=== PATIENT | female | born 1970 | race Caucasian/White ===

== ENCOUNTER → 2016-11-02 | Outpatient (CLI) | payer OTHER ==
--- NOTE | 2016-11-03 11:47 | MM ---
Reason for exam: screening (asymptomatic). Last mammogram was performed 1 year ago. Physical Findings: A clinical breast exam by your physician is recommended on an annual basis and results should be correlated with mammographic findings. MG Screening Mammo w CAD Bilateral CC and MLO view(s) were taken. Prior study comparison: November 01, 2015, bilateral MG screening mammo w CAD. October 29, 2014, bilateral MG screening mammo w CAD. The breast tissue is heterogeneously dense. This may lower the sensitivity of mammography. Benign calcifications. Focal asymmetry in the upper left breast 9cm from nipple. ASSESSMENT: Incomplete: need additional imaging evaluation, BI-RAD 0 RECOMMENDATION: Special view mammogram of the left breast. If lesion persists on supplemental views, image directed ultrasound is recommended. [facility] will attempt to contact patient to return for supplemental views and ultrasound if indicated.
== END | disposition home or self-care (01) ==
LOC: RADMAMWWP 11:21
PROVIDERS: ATTEND Internal Medicine
DX: Z12.31 Encounter for screening mammogram for malignant neoplasm of breast (principal)

== ENCOUNTER → 2016-11-13 | Outpatient (CLI) | payer OTHER ==
--- NOTE | 2016-11-13 14:52 | MM ---
Reason for exam: additional evaluation requested from abnormal screening. Last mammogram was performed less than 1 month ago. Physical Findings: Nurse did not find any significant physical abnormalities on exam. MG Work Up Mamm w CAD LT ML, spot compression MLO, and spot compression CC view(s) were taken of the left breast. Prior study comparison: November 02, 2016, bilateral MG screening mammo w CAD. November 01, 2015, bilateral MG screening mammo w CAD. October 29, 2014, bilateral MG screening mammo w CAD. The breast tissue is heterogeneously dense. This may lower the sensitivity of mammography. The questioned central posterior asymmetric density does not persist on spot views suggesting summation density. Precautionary 6 month follow up recommended. These results were verbally communicated with the patient and result sheet given to the patient on 11/13/16. ASSESSMENT: Probably benign, BI-RAD 3 RECOMMENDATION: Follow-up diagnostic mammogram of the left breast in 6 months.
== END | disposition home or self-care (01) ==
LOC: RADMAMWWP 14:04
PROVIDERS: ATTEND Internal Medicine
DX: R92.8 Other abnormal and inconclusive findings on diagnostic imaging of breast (principal)

== ENCOUNTER → 2017-06-26 | Outpatient (CLI) | payer OTHER ==
--- NOTE | 2017-06-26 14:59 | MM ---
Reason for exam: follow-up at short interval from prior study. Last mammogram was performed 7 months ago. Physical Findings: Nurse did not find any significant physical abnormalities on exam. MG Diagnostic Mammo LT w CAD CC and MLO view(s) were taken of the left breast. Prior study comparison: November 13, 2016, left breast MG work up mamm w CAD LT. November 02, 2016, bilateral MG screening mammo w CAD. There are scattered fibroglandular densities. The previously questioned posterior central asymmetric density on the MLO view is no longer present. Subtle nodular density laterally at a middle depth show no correlate on lateral or MLO view. This is stable for 6 months. Additional 6 month follow up recommended. These results were verbally communicated with the patient and result sheet given to the patient on 06/26/17. ASSESSMENT: Probably benign, BI-RAD 3 RECOMMENDATION: Follow-up diagnostic mammogram of both breasts in 4 months. Back on schedule for October 2017.
== END | disposition home or self-care (01) ==
LOC: RADMAMWWP 14:14
PROVIDERS: ATTEND Internal Medicine
DX: N64.59 Other signs and symptoms in breast (principal)
CPT/HCPCS: 77065

== ENCOUNTER → 2017-10-17 | Outpatient (CLI) | payer OTHER ==
--- NOTE | 2017-10-18 07:08 | US ---
EXAMINATION TYPE: US thyroid st tissue head/neck DATE OF EXAM: 10/17/2017 COMPARISON: NONE CLINICAL HISTORY: R22.1 SWOLLEN NECK. Patient states she has gained a lot of weight and she noticed a swollen appearing area in the middle of her neck. No pain No abnormality is visualized at the area of the patient's swelling. Incidental finding of a right thy roid nodule measuring 0.6 x 0.7 x 0.6 cm IMPRESSION: As above, no worrisome mass or fluid collection. Incidental 7 mm solid nodule right thyr oid lobe.
== END | disposition home or self-care (01) ==
LOC: RADUSWWP 15:20
PROVIDERS: ATTEND Internal Medicine
DX: R22.1 Localized swelling, mass and lump, neck (principal)
CPT/HCPCS: 76536

== ENCOUNTER → 2017-11-05 | Outpatient (CLI) | payer OTHER ==
--- NOTE | 2017-11-05 13:34 | MM ---
Reason for exam: follow-up at short interval from prior study. Last mammogram was performed 4 months ago. Physical Findings: Nurse did not find any significant physical abnormalities on exam. MG Diagnostic Mammo w CAD GOOD Bilateral CC and MLO view(s) were taken. Prior study comparison: June 26, 2017, left breast MG diagnostic mammo LT w CAD. November 13, 2016, left breast MG work up mamm w CAD LT. There are scattered fibroglandular densities. Previous densities on the left no longer present. No significant new findings when compared with previous films. These results were verbally communicated with the patient and result sheet given to the patient on 11/05/17. ASSESSMENT: Negative, BI-RAD 1 RECOMMENDATION: Routine screening mammogram of both breasts in 1 year.
== END | disposition home or self-care (01) ==
LOC: RADMAMWWP 12:51
PROVIDERS: ATTEND Internal Medicine
DX: N64.59 Other signs and symptoms in breast (principal)
CPT/HCPCS: 77066

== ENCOUNTER → 2018-04-05 | Outpatient (CLI) | payer OTHER ==
--- NOTE | 2018-04-05 15:33 | XR ---
EXAMINATION TYPE: XR shoulder complete RT DATE OF EXAM: 04/05/2018 CLINICAL HISTORY: pain TECHNIQUE: Three views of the right shoulder are obtained. COMPARISON: None FINDINGS: There is no acute fracture/dislocation evident. The acromioclavicular and glenohumeral beatris int spaces appear within normal limits. The visualized ribs are intact and unremarkable. IMPRESSION: 1. There is no acute fracture or dislocation. ICD 10 NO FRACTURE, INITIAL EVALUATION
== END | disposition home or self-care (01) ==
LOC: RADXRYALE 14:26
PROVIDERS: ATTEND Internal Medicine
DX: M25.511 Pain in right shoulder (principal)

== ENCOUNTER → 2018-07-03 | Outpatient (CLI) | payer OTHER ==
--- NOTE | 2018-07-03 12:35 | XR ---
Lumbosacral spine HISTORY: Sciatica, pain 5 views of the lumbosacral spine There is no evident spondylolysis or spondylolisthesis. Multilevel spondylosis is present. Lumbar guanako tebral bodies show preserved height and bone mineralization. Loss of disc height present L5-S1. Suspe ct only rudimentary rib at T12 on the left. Sclerosis present in the posterior elements of the lower lumbar spine compatible with facet arthropathy. IMPRESSION: Degenerative disc disease and facet arthropathy. Correlate with plain film prior to any i ntervention.
== END ==
LOC: RADXRYALE 09:10
PROVIDERS: ATTEND Internal Medicine
DX: M51.36 Other intervertebral disc degeneration, lumbar region (principal); M46.96 Unspecified inflammatory spondylopathy, lumbar region
CPT/HCPCS: 72110

== ENCOUNTER → 2018-08-05 | Outpatient (CLI) | payer OTHER ==
--- NOTE | 2018-08-06 07:34 | US ---
EXAMINATION TYPE: US pelvic complete DATE OF EXAM: 08/05/2018 COMPARISON: NONE CLINICAL HISTORY: N92.1 Menorrhagia w/irregular cycle. irregular heavy cycles for a while now, no cyc le in Jun TECHNIQUE: TA. Transabdominal sonographic images of the pelvis were acquired. *Patient states her physician did not explain the TV portion and once I informed her of exam she refused at this time. Date of LMP: 05/16/2018 EXAM MEASUREMENTS: Uterus: 9.5 x 4.7 x 3.8 cm Endometrial Stripe: 0.9 cm Right Ovary: 1.6 x 1.7 x 1.2 cm Left Ovary: 2.2 x 1.8 x 1.8 cm 1. Uterus: Anteverted wnl 2. Endometrium: wnl 3. Right Ovary: small follicle seen 4. Left Ovary: dominate follicle seen 5. Bilateral Adnexa: wnl 6. Posterior cul-de-sac: wnl IMPRESSION: Small cyst or dominant follicle within the left ovary measuring 1.5 cm. Endometrial strip e measures 9 mm correlate with the phase of the patient's menstrual cycle.
== END | disposition home or self-care (01) ==
LOC: RADUSWWP 16:04
PROVIDERS: ATTEND Internal Medicine
DX: N92.1 Excessive and frequent menstruation with irregular cycle (principal)
CPT/HCPCS: 76856

== ENCOUNTER → 2019-01-17 | Outpatient (CLI) | payer OTHER ==
--- NOTE | 2019-01-20 13:29 | MM ---
Reason for exam: screening (asymptomatic). Last mammogram was performed 1 year and 2 months ago. Physical Findings: A clinical breast exam by your physician is recommended on an annual basis and results should be correlated with mammographic findings. MG Screening Mammo w CAD Bilateral CC and MLO view(s) were taken. Prior study comparison: November 05, 2017, bilateral MG diagnostic mammo w CAD GOOD. June 26, 2017, left breast MG diagnostic mammo LT w CAD. There are scattered fibroglandular densities. No significant changes when compared with prior studies. ASSESSMENT: Negative, BI-RAD 1 RECOMMENDATION: Routine screening mammogram of both breasts in 1 year.
== END | disposition home or self-care (01) ==
LOC: RADMAMWWP 16:31
PROVIDERS: ATTEND Internal Medicine
DX: Z12.31 Encounter for screening mammogram for malignant neoplasm of breast (principal)
CPT/HCPCS: 77067

== ENCOUNTER → 2020-02-17 | Outpatient (CLI) | payer OTHER | END | disposition home or self-care (01) | LOC: LABWHC1 13:32 | PROVIDERS: ATTEND Internal Medicine | DX: R05 Cough (principal); Z20.828 Contact with and (suspected) exposure to other viral communicable diseases; R09.81 Nasal congestion | CPT/HCPCS: U0003; C9803 ==

== ENCOUNTER 2021-03-17 14:06 | Inpatient (IN) | payer OTHER ==
[2021-03-17] MEDS ORDERED: ACETAMINOPHEN TAB 500 MG TAB PO STA (17:16)
[2021-03-17] MEDS ORDERED: ONDANSETRON ODT 4 MG TAB PO STA (17:16)
[2021-03-17] MEDS ORDERED: ONDANSETRON 4 MG ODT STARTER PACK 2 TAB BTL PO STA (17:19)
--- NOTE | 2021-03-17 17:20 | ED ---
General Adult HPI - General Chief complaint: Recheck/Abnormal Lab/Rx Stated complaint: COVID + wants infusion Source: patient Mode of arrival: ambulatory Limitations: no limitations - History of Present Illness Initial comments: 50-year-old female with no reported past medical history presents to the emergency department requesting antibody treatment. States that she began hav ing symptoms on March 09 and was tested that day at a [facility]. She is found to be positive. She said fevers, fatigue, shortness of breath, nausea and diarrhea. Patient is not Covid vaccinated. She denies any previous history of cardiac or pulmonary issues. No other alleviating, precipitating or modifying factors - Related Data Home Medications Medication Instructions Recorded Confirmed Cholecalciferol [Vitamin D3 (25 50 mcg PO DAILY 03/17/21 03/17/21 Mcg = 1000 Iu)] Levothyroxine Sodium [Synthroid] 88 mcg PO DAILY 03/17/21 03/17/21 Loratadine 10 mg PO DAILY 03/17/21 03/17/21 Simvastatin [Zocor] 40 mg PO DAILY 03/17/21 03/17/21 Venlafaxine HCl [Effexor XR] 75 mg PO DAILY 03/17/21 03/17/21 Previous Rx's Medication Instructions Recorded Albuterol Inhaler [Ventolin Hfa 2 puff INHALATION RT-QID PRN #1 gm 03/21/21 Inhaler] Ascorbic Acid [Vitamin C] 500 mg PO DAILY #30 tab 03/21/21 Zinc Sulfate [Orazinc] 220 mg PO DAILY #10 cap 03/21/21 dexAMETHasone ORAL [Hexadrol] 6 mg PO DAILY #7 tablet 03/21/21 Allergies Allergy/AdvReac Type Severity Reaction Status Date / Time No Known Allergies Allergy Verified 03/17/21 21:19 Review of Systems ROS Statement: Those systems with pertinent positive or pertinent negative responses have been documented in the HPI. ROS Other: All systems not noted in ROS Statement are negative. Past Medical History Past Medical History: No Reported History History of Any Multi-Drug Resistant Organisms: None Reported Past Surgical History: No Surgical Hx Reported Past Psychological History: No Psychological Hx Reported Smoking Status: Never smoker Past Alcohol Use History: None Reported Past Drug Use History: None Reported General Exam Limitations: no limitations General appearance: alert, in no apparent distress Head exam: Present: atraumatic, normocephalic, normal inspection Eye exam: Present: normal appearance, PERRL, EOMI. Absent: scleral icterus, conjunctival injection, periorbital swelling ENT exam: Present: normal exam, mucous membranes moist Neck exam: Present: normal inspection. Absent: tenderness, meningismus, lymphadenopathy Respiratory exam: Present: decreased breath sounds, other (some conversational dyspnia). Absent: respiratory distress, wheezes, rales, rhonchi, stridor Cardiovascular Exam: Present: normal rhythm, tachycardia, normal heart sounds. Absent: systolic murmur, diastolic murmur, rubs, gallop, clicks GI/Abdominal exam: Present: soft, normal bowel sounds. Absent: distended, tenderness, guarding, rebound, rigid Extremities exam: Present: normal inspection, full ROM, normal capillary refill. Absent: tenderness, pedal edema, joint swelling, calf tenderness Back exam: Present: normal inspection Neurological exam: Present: alert, oriented X3, CN II-XII intact Psychiatric exam: Present: normal affect, normal mood Skin exam: Present: warm, dry, intact, normal color. Absent: rash Course Vital Signs 03/17/21 03/17/21 03/17/21 15:47 18:10 18:35 Temperature 100.4 F H Pulse Rate 105 H 89 89 Pulse Rate [ Pulse Oximetery ] Respiratory 20 18 20 Rate Blood Pressure 139/67 130/57 136/53 Blood Pressure [Left Arm] O2 Sat by Pulse 93 L 91 L 89 L Oximetry 03/17/21 03/17/21 03/18/21 20:12 22:00 02:14 Temperature 99.4 F 98.7 F 98.8 F Pulse Rate 90 93 93 Pulse Rate [ Pulse Oximetery ] Respiratory 20 16 18 Rate Blood Pressure 126/64 115/53 116/71 Blood Pressure [Left Arm] O2 Sat by Pulse 92 L 96 93 L Oximetry 03/18/21 03/18/21 03/18/21 04:25 04:26 08:52 Temperature Pulse Rate 98 90 Pulse Rate [ Pulse Oximetery ] Respiratory 20 20 Rate Blood Pressure Blood Pressure [Left Arm] O2 Sat by Pulse 84 L 96 91 L Oximetry 03/18/21 03/18/21 03/18/21 09:29 12:56 15:21 Temperature 98.2 F Pulse Rate 82 Pulse Rate [ 77 Pulse Oximetery ] Respiratory 18 16 Rate Blood Pressure 107/65 Blood Pressure 118/68 [Left Arm] O2 Sat by Pulse 93 L 94 L 92 L Oximetry 03/18/21 03/18/21 17:59 21:38 Temperature Pulse Rate 91 Pulse Rate [ Pulse Oximetery ] Respiratory 16 Rate Blood Pressure Blood Pressure [Left Arm] O2 Sat by Pulse 92 L 96 Oximetry - Reevaluation(s) Reevaluation #1: 03/17/21 20:17 Patient reevaluated. Wanted antibody infusion for which she received. Oxygenation does fall to 85%. I did recommend admission at this time EKG Findings - EKG Comments: EKG Findings:: EKG demonstrates normal sinus rhythm with a ventricular rate of 85. AR interval 142. QRS 88. QTC of 437. No acute ST segment elevations or depressions concerning for ischemic changes or infarction Medical Decision Making - Medical Decision Making Upon arrival patient was placed into the conference room. IV is established. Antibody infusion is ordered. She is given a dose of Zofran and Tylenol. Patient does receive antibody infusion and vitals are obtained throughout her treatment. Patient does develop worsening oxygenation. Patient saturating 88% on room air because of this she is moved to room 9. I evaluated the patient myself. She is able to get up and ambulate and drops to 85%. I informed the patient that I do believe she we should be admitted to the hospital for her hypoxia. Patient agreed. Laboratory studies were conducted and the patient went for a chest x-ray which demonstrates multifocal bilateral ill-defined airspace opacities. Patient will be admitted to [facility]. She remained in stable condition on 2 L of oxygen awaiting a bed on the floor - Lab Data Result diagrams: 03/17/21 21:22 03/17/21 21:22 Disposition Clinical Impression: COVID-19 Disposition: ADMITTED IP TO THIS HOSP Condition: Stable Is patient prescribed a controlled substance at d/c from ED?: No Decision to Admit Reason: Admit from EC Decision Date: 03/17/21 Decision Time: 20:17
[2021-03-17] MEDS ORDERED: CASIRIVIMAB/IMDEVIMAB (EUA) 1,200 MG in SODIUM CHLORIDE 0.9% 100 ML IVPB ONE (17:30)
[2021-03-17] MEDS ORDERED: SODIUM CHLORIDE 0.9% 50 ML IVPB ONE (17:30)
[2021-03-17] MEDS ORDERED: ALBUTEROL HFA INHALER INHALATION STA (18:15)
[2021-03-17] MEDS ORDERED: ONDANSETRON 4 MG/2 ML VIAL IVP PRN (20:18)
[2021-03-17] MEDS ORDERED: NALOXONE 0.4 MG/ML 1 ML VIAL IV PRN (20:18)
[2021-03-17] MEDS ORDERED: IBUPROFEN 400 MG TAB PO PRN (20:18)
--- NOTE | 2021-03-17 21:00 | XR ---
EXAMINATION: XR chest 1V portable DATE AND TIME: 03/17/2021 8:39 PM CLINICAL INDICATION: Dyspnea; Suspected COVID-19 pneumonia TECHNIQUE: Departmental protocol COMPARISON: 11/04/2013 FINDINGS: The lungs demonstrate multifocal patchy ill-defined opacities, left greater than right and most situa antonio at the periphery. These radiographic features are consistent with a clinical diagnosis of atypica l pneumonia. The pleural spaces are negative. The cardiac silhouette is not enlarged. The remainder of the mediastinal silhouette is unremarkable. The skeletal structures and soft tissues are negative for acute findings. IMPRESSION: Multifocal bilateral ill-defined added pulmonary opacities, predominating at the periphery of the par enchyma.
[2021-03-17 21:27] LABS: Basophils % (A) 0 %; Eosinophils % (A) 0 %; HCT 36.4 % (34.0-46.0); HGB 12.4 gm/dL (11.4-16.0); Lymphocytes # (A) 0.7 k/uL (1.0-4.8); Lymphocytes % (A) 16 %; MCH 27.9 pg (25.0-35.0); MCHC 34.1 g/dL (31.0-37.0); MCV 81.7 fL (80.0-100.0); Mean Platelet Volume 7.8; Monocytes # (A) 0.1 k/uL (0-1.0); Monocytes % (A) 3 %; Neutrophils # (A) 3.4 k/uL (1.3-7.7); Neutrophils % (A) 79 %; Platelet Count 111 k/uL (150-450); RBC 4.45 m/uL (3.80-5.40); RDW 13.6 % (11.5-15.5); WBC 4.3 k/uL (3.8-10.6)
[2021-03-17 21:36] LABS: ALT 33 U/L (4-34); AST 50 U/L (14-36); African American GFR (CKD) >90 (>60 ml/min/1.73 sqM); Albumin 3.7 g/dL (3.5-5.0); Alkaline Phosphatase 64 U/L (38-126); Anion Gap 9 mmol/L; Blood Urea Nitrogen 15 mg/dL (7-17); Calcium 8.6 mg/dL (8.4-10.2); Carbon Dioxide 24 mmol/L (22-30); Chloride 102 mmol/L (98-107); Glucose 123 mg/dL (74-99); Magnesium 2.1 mg/dL (1.6-2.3); Non-African American GFR(CKD) 79 (>60 ml/min/1.73 sqM); Sodium 135 mmol/L (137-145); Total Bilirubin 0.3 mg/dL (0.2-1.3); Total Protein 6.6 g/dL (6.3-8.2)
[2021-03-17 21:45] LABS: Partial Thromboplastin Time 26.5 sec (22.0-30.0); Prothrombin Time 10.4 sec (9.0-12.0)
[2021-03-17] MEDS: ACETAMINOPHEN TAB 325 MG TAB PO PRN (22:24)
[2021-03-18] MEDS: ACETAMINOPHEN TAB 325 MG TAB PO PRN ×2 (04:21→17:50)
[2021-03-18] MEDS: SODIUM CHLORIDE 0.9% 1,000 ML IV SCH ×2 (04:22→09:22)
[2021-03-18] MEDS: DEXAMETHASONE SOD PHOSPHATE 10 MG/ML 1 ML VIAL IVP SCH (09:21)
[2021-03-18] MEDS: ATORVASTATIN 20 MG TAB PO SCH (09:21)
[2021-03-18] MEDS: LEVOTHYROXINE 88 MCG TAB PO SCH (09:21)
[2021-03-18] MEDS: CHOLECALCIFEROL 25 MCG (1000 IU) TABLET PO SCH (09:21)
[2021-03-18] MEDS: LORATADINE 10 MG TAB PO SCH (09:22)
[2021-03-18] MEDS: VENLAFAXINE HCL ER 75 MG CAP PO SCH (09:22)
--- NOTE | 2021-03-18 10:50 | P.CNPUL ---
History of Present Illness Consult date: 03/18/21 Reason for consult: pneumonia History of present illness: A pleasant 50-year-old female patient is currently hospitalized for shortness of breath and fever related to covid 19 infection. The patient became symptomatic on 03/09/2021. At that time she was exposed to her daughter was also infected. Immediately she checked herself and she was positive. She contacted her primary care physician. No treatment was offered. Her condition got worse and she continued to have fevers and she is calm and in with fever and weakness and she was found to be hypoxic and currently is on 2 L of oxygen by nasal cannula. He did receive multiple antibodies yesterday. Subsequently, she was found to be hypoxic and her breathing got worse and for that reason she was admitted to the hospital. Her breathing is nonlabored at this point in time. She is on 2 L of oxygen by nasal cannula. Chest x-rays clearly showing bilateral pneumonia/infiltration. The patient's crackles bilaterally. White cell count is at 4.3, platelet count is 111, normal coagulation profile, d-dimer is low at 0.54, electrolytes are all normal, inflammatory markers are still pending for now. Renal function is normal. No signs of intravascular volume depletion or dehydration. She is otherwise healthy. She has history of hypothyroidism. Review of Systems Constitutional: Reports fatigue, Reports fever, Reports weakness Eyes: denies as per HPI, denies blurred vision, denies bulging eye, denies decreased vision, denies diplopia, denies discharge, denies dry eye, denies irritation, denies itching, denies pain, denies photophobia, denies loss of peripheral vision, denies loss of vision, denies tunnel vision/blind spots Ears: deny: decreased hearing, ear discharge, earache, tinnitus Ears, nose, mouth and throat: Reports as per HPI Breasts: absent: as per HPI, change in shape, gynecomastia, masses, nipple discharge, pain, skin changes, swelling Cardiovascular: Reports as per HPI Respiratory: Reports as per HPI, Reports cough Gastrointestinal: Reports as per HPI Genitourinary: Reports as per HPI Menstruation: Reports as per HPI Musculoskeletal: Reports as per HPI Musculoskeletal: absent: ankle pain, ankle stiffness, ankle swelling, as per HPI, elbow pain, elbow stiffness, elbow swelling, foot pain, foot stiffness, foot swelling, hand pain, hand stiffness, hand swelling, hip pain, hip stiffness, hip swelling, knee pain, knee stiffness, knee swelling, shoulder pain, shoulder stiffness, shoulder swelling, wrist pain, wrist stiffness, wrist swelling Integumentary: Reports as per HPI Neurological: Reports as per HPI Psychiatric: Reports as per HPI Endocrine: Reports as per HPI Hematologic/Lymphatic: Reports as per HPI Allergic/Immunologic: Reports as per HPI Past Medical History Past Medical History: No Reported History, Thyroid Disorder History of Any Multi-Drug Resistant Organisms: None Reported Past Surgical History: No Surgical Hx Reported Past Psychological History: No Psychological Hx Reported Smoking Status: Never smoker Past Alcohol Use History: None Reported Past Drug Use History: None Reported Medications and Allergies Home Medications Medication Instructions Recorded Confirmed Type Cholecalciferol [Vitamin D3 (25 50 mcg PO DAILY 03/17/21 03/17/21 History Mcg = 1000 Iu)] Levothyroxine Sodium [Synthroid] 88 mcg PO DAILY 03/17/21 03/17/21 History Loratadine 10 mg PO DAILY 03/17/21 03/17/21 History Simvastatin [Zocor] 40 mg PO DAILY 03/17/21 03/17/21 History Venlafaxine HCl [Effexor XR] 75 mg PO DAILY 03/17/21 03/17/21 History Allergies Allergy/AdvReac Type Severity Reaction Status Date / Time No Known Allergies Allergy Verified 03/17/21 21:19 Physical Exam Vitals: Vital Signs Temp Pulse Resp BP Pulse Ox 03/18/21 09:29 82 18 107/65 93 L 03/18/21 08:52 91 L 03/18/21 04:26 90 20 96 03/18/21 04:25 98 20 84 L 03/18/21 02:14 98.8 F 93 18 116/71 93 L 03/17/21 22:00 98.7 F 93 16 115/53 96 03/17/21 20:12 99.4 F 90 20 126/64 92 L 03/17/21 18:35 89 20 136/53 89 L 03/17/21 18:10 89 18 130/57 91 L 03/17/21 15:47 100.4 F H 105 H 20 139/67 93 L Intake and Output 03/17/21 03/18/21 03/18/21 22:59 06:59 14:59 Other: Weight 99.79 kg Gen. appearance the patient is calm and her breathing is nonlabored currently on 2 L Head exam was generally normal. There was no scleral icterus or corneal arcus. Mucous membranes were moist. Neck was supple and without jugular venous distension, thyromegaly, or carotid bruits. Carotids were easily palpable bilaterally. There was no adenopathy. Lungs are diminished in the patient's crackles in the lung bases bilaterally Cardiac exam revealed the PMI to be normally situated and sized. The rhythm was regular and no extrasystoles were noted during several minutes of auscultation. The first and second heart sounds were normal and physiologic splitting of the second heart sound was noted. There were no murmurs, rubs, clicks, or gallops. Abdominal exam revealed normal bowel sounds. The abdomen was soft, non-tender, and without masses, organomegaly, or appreciable enlargement of the abdominal aorta. Examination of the extremities revealed easily palpable radial, femoral and pedal pulses. There was no cyanosis, clubbing or edema. Results - Laboratory Findings CBC and BMP: 03/17/21 21:22 03/17/21 21:22 PT/INR, D-dimer PT 10.4 sec (9.0-12.0) 03/17/21 21:22 INR 1.0 (<1.2) 03/17/21 21:22 D-Dimer 0.54 mg/L FEU (<0.60) 03/17/21 21:22 Abnormal lab findings: Abnormal Labs 03/17/21 03/17/21 21:22 21:22 Plt Count 111 L Lymphocytes # 0.7 L Sodium 135 L Glucose 123 H AST 50 H - Diagnostic Findings Chest x-ray: image reviewed Assessment and Plan Plan: 1 Acute COVID 19 pneumonia, treated initially with monoclonal antibodies and subsequently the patient was found to be hypoxic with bilateral pulmonary infiltrates on the chest x-ray and the patient was hospitalized currently on 2 L about 2 by nasal cannula. D-dimer is low. The rest of the inflammatory markers are still pending 2 acute hypoxemic respiratory failure secondary to above 3 fever secondary to above 4 thrombocytopenia secondary to above 5 hypothyroidism Plan We'll admit the patient briefly to the hospital and monitor the oxygenation. Currently she is on 2 L. Check inflammatory markers including LDH, CRP and Proteus stone in level We'll put the patient on Decadron 6 g IV every 24 hours along with Lovenox 40 subcu daily Multivitamins per protocol Will monitor in the hospital for another 24-48 hours. Depending on her progress, she may be able to go home with home O2 especially if she remains hypoxic. We'll make further decisions over the next 24-48 hours. We'll continue to follow. Her condition is stable for now. 5
[2021-03-18] MEDS: ENOXAPARIN 40 MG/0.4 ML SYRINGE SQ SCH (11:16)
[2021-03-18] MEDS: ASCORBIC ACID 500 MG TAB PO SCH ×2 (11:17→21:41)
[2021-03-18] MEDS: ZINC SULFATE 220 MG CAP PO SCH (11:17)
[2021-03-18 12:29] LABS: C Reactive Protein 7.4 mg/dL (<1.0)
[2021-03-19] MEDS: SODIUM CHLORIDE 0.9% 1,000 ML IV SCH ×2 (03:09→13:40)
[2021-03-19] MEDS: LEVOTHYROXINE 88 MCG TAB PO SCH (06:05)
[2021-03-19] MEDS: ACETAMINOPHEN TAB 325 MG TAB PO PRN ×2 (07:42→20:27)
[2021-03-19] MEDS: VENLAFAXINE HCL ER 75 MG CAP PO SCH (07:42)
[2021-03-19] MEDS: CHOLECALCIFEROL 25 MCG (1000 IU) TABLET PO SCH (07:42)
[2021-03-19] MEDS: ATORVASTATIN 20 MG TAB PO SCH (07:42)
[2021-03-19] MEDS: LORATADINE 10 MG TAB PO SCH (07:43)
[2021-03-19] MEDS: ENOXAPARIN 40 MG/0.4 ML SYRINGE SQ SCH (07:43)
[2021-03-19] MEDS: ZINC SULFATE 220 MG CAP PO SCH (07:43)
[2021-03-19] MEDS: DEXAMETHASONE SOD PHOSPHATE 10 MG/ML 1 ML VIAL IVP SCH (07:43)
[2021-03-19] MEDS: ASCORBIC ACID 500 MG TAB PO SCH ×2 (07:43→20:28)
--- NOTE | 2021-03-19 09:26 | XR ---
EXAMINATION TYPE: XR chest 1V portable DATE OF EXAM: 03/19/2021 COMPARISON: 03/17/2021 INDICATION: Covid TECHNIQUE: Single frontal view of the chest is obtained. FINDINGS: The heart size is normal. The pulmonary vasculature is normal. Bilateral lung infiltrates are present in the periphery. Findings are nonspecific but can be compatib le with atypical pneumonia. Findings appear similar to comparison. IMPRESSION: 1. Bilateral peripheral lung infiltrates can be compatible with atypical pneumonia.
--- NOTE | 2021-03-19 12:07 | P.PN ---
Subjective Progress Note Date: 03/19/21 A pleasant 50-year-old female patient is currently hospitalized for shortness of breath and fever related to covid 19 infection. The patient became symptomatic on 03/09/2021. At that time she was exposed to her daughter was also infected. Immediately she checked herself and she was positive. She contacted her primary care physician. No treatment was offered. Her condition got worse and she continued to have fevers and she is calm and in with fever and weakness and she was found to be hypoxic and currently is on 2 L of oxygen by nasal cannula. He did receive multiple antibodies yesterday. Subsequently, she was found to be hypoxic and her breathing got worse and for that reason she was admitted to the hospital. Her breathing is nonlabored at this point in time. She is on 2 L of oxygen by nasal cannula. Chest x-rays clearly showing bilateral pneumonia/infiltration. The patient's crackles bilaterally. White cell count is at 4.3, platelet count is 111, normal coagulation profile, d-dimer is low at 0.54, electrolytes are all normal, inflammatory markers are still pending for now. Renal function is normal. No signs of intravascular volume depletion or dehydration. She is otherwise healthy. She has history of hypothyroidism. 03 19 2021, no new complaints and the patient remains on oxygen at 2 L, unable to wean her down further as the patient has a pulse ox of 90%. This is on 2 L of oxygen by nasal cannula. In terms of her treatment, she is on Decadron and she is on Lovenox. D-dimer is at 0.54. Rest of the inflammatory markers show an LDH level of 1218 and a CRP of 7.4. Objective - Vital Signs Vital signs: Vital Signs Temp 98.3 F 03/19/21 06:13 Pulse 74 03/19/21 06:13 Resp 17 03/19/21 07:40 BP 127/76 03/19/21 06:13 Pulse Ox 90 L 03/19/21 06:13 Intake & Output 03/18/21 03/19/21 03/19/21 18:59 06:59 18:59 Other: # Voids 2 - Exam Gen. appearance the patient is calm and her breathing is nonlabored currently on 2 L Head exam was generally normal. There was no scleral icterus or corneal arcus. Mucous membranes were moist. Neck was supple and without jugular venous distension, thyromegaly, or carotid bruits. Carotids were easily palpable bilaterally. There was no adenopathy. Lungs are diminished in the patient's crackles in the lung bases bilaterally Cardiac exam revealed the PMI to be normally situated and sized. The rhythm was regular and no extrasystoles were noted during several minutes of auscultation. The first and second heart sounds were normal and physiologic splitting of the second heart sound was noted. There were no murmurs, rubs, clicks, or gallops. Abdominal exam revealed normal bowel sounds. The abdomen was soft, non-tender, and without masses, organomegaly, or appreciable enlargement of the abdominal aorta. Examination of the extremities revealed easily palpable radial, femoral and pedal pulses. There was no cyanosis, clubbing or edema. - Labs CBC & Chem 7: 03/17/21 21:22 03/17/21 21:22 Labs: Abnormal Lab Results - Last 24 Hours (Table) 03/18/21 Range/Units 11:37 Lactate Dehydrogenase 1218 H (313-618) U/L C-Reactive Protein 7.4 H (<1.0) mg/dL Assessment and Plan Plan: 1 Acute COVID 19 pneumonia, treated initially with monoclonal antibodies and s ubsequently the patient was found to be hypoxic with bilateral pulmonary infiltrates on the chest x-ray and the patient was hospitalized currently on 2 L about 2 by nasal cannula. D-dimer is low. The rest of the inflammatory markers are high including LDH and for that reason the patient will be kept in the hospital for another 24 hours for further monitoring of her oxygenation. 2 acute hypoxemic respiratory failure secondary to above 3 fever secondary to above 4 thrombocytopenia secondary to above 5 hypothyroidism Plan Monitor the oxygenation. Currently she is on 2 L. Recheck inflammatory markers including LDH and CRP in a.m. Decadron 6 g IV every 24 hours along with Lovenox 40 subcu daily Multivitamins per protocol Will monitor in the hospital for another 24-48 hours.
[2021-03-19] MEDS: ALBUTEROL HFA INHALER INHALATION PRN (12:54)
[2021-03-19 13:54] LABS: C Reactive Protein 4.2 mg/dL (0.00-0.80)
--- NOTE | 2021-03-19 18:53 | P.HPIM ---
History of Present Illness H&P Date: 03/11/21 Chief Complaint: Shortness of breath 50-year-old female patient is currently hospitalized for shortness of breath and fever related to covid 19 infection. The patient became symptomatic on 03/09/2021. At that time she was exposed to her daughter was also infected. Immediately she checked herself and she was positive. She contacted her primary care physician. No treatment was offered. Her condition got worse and she continued to have fevers and she is calm and in with fever and weakness and she was found to be hypoxic and currently is on 2 L of oxygen by nasal cannula. He did receive multiple antibodies yesterday. Subsequently, she was found to be hypoxic and her breathing got worse and for that reason she was admitted to the hospital. Her breathing is nonlabored at this point in time. She is on 2 L of oxygen by nasal cannula. Chest x-rays clearly showing bilateral pneumonia/infiltration. The patient's crackles bilaterally. White cell count is at 4.3, platelet count is 111, normal coagulation profile, d-dimer is low at 0.54, electrolytes are all normal, inflammatory markers are still pending for now. Renal function is normal. No signs of intravascular volume depletion or dehydration. She is otherwise healthy. She has history of hypothyroidism. Review of Systems REVIEW OF SYSTEMS: CONSTITUTIONAL: fever, malaise, fatigue. HEENT: No recent visual problems or hearing problems. Denied any sore throat. CARDIOVASCULAR: No chest pain, orthopnea, PND, no palpitations, no syncope. PULMONARY: shortness of breath, no cough, no hemoptysis. GASTROINTESTINAL: No diarrhea, no nausea, no vomiting, no abdominal pain. NEUROLOGICAL: No headaches, no weakness, no numbness. HEMATOLOGICAL: Denies any bleeding or petechiae. GENITOURINARY: Denies any burning micturition, frequency, or urgency. MUSCULOSKELETAL/RHEUMATOLOGICAL: Denies any joint pain, swelling, or any muscle pain. ENDOCRINE: Denies any polyuria or polydipsia. The rest of the 14-point review of systems is negative. Past Medical History Past Medical History: No Reported History, Thyroid Disorder History of Any Multi-Drug Resistant Organisms: None Reported Past Surgical History: No Surgical Hx Reported Past Psychological History: No Psychological Hx Reported Smoking Status: Never smoker Past Alcohol Use History: None Reported Past Drug Use History: None Reported Medications and Allergies Home Medications Medication Instructions Recorded Confirmed Type Cholecalciferol [Vitamin D3 (25 50 mcg PO DAILY 03/17/21 03/17/21 History Mcg = 1000 Iu)] Levothyroxine Sodium [Synthroid] 88 mcg PO DAILY 03/17/21 03/17/21 History Loratadine 10 mg PO DAILY 03/17/21 03/17/21 History Simvastatin [Zocor] 40 mg PO DAILY 03/17/21 03/17/21 History Venlafaxine HCl [Effexor XR] 75 mg PO DAILY 03/17/21 03/17/21 History Allergies Allergy/AdvReac Type Severity Reaction Status Date / Time No Known Allergies Allergy Verified 03/17/21 21:19 Physical Exam Vitals: Vital Signs Temp Pulse Resp BP Pulse Ox 03/18/21 09:29 82 18 107/65 93 L 03/18/21 08:52 91 L 03/18/21 04:26 90 20 96 03/18/21 04:25 98 20 84 L 03/18/21 02:14 98.8 F 93 18 116/71 93 L 03/17/21 22:00 98.7 F 93 16 115/53 96 03/17/21 20:12 99.4 F 90 20 126/64 92 L 03/17/21 18:35 89 20 136/53 89 L 03/17/21 18:10 89 18 130/57 91 L 03/17/21 15:47 100.4 F H 105 H 20 139/67 93 L Intake and Output 03/17/21 03/18/21 03/18/21 22:59 06:59 14:59 Other: Weight 99.79 kg Gen. appearance the patient is calm and her breathing is nonlabored currently on 2 L Head exam was generally normal. There was no scleral icterus or corneal arcus. Mucous membranes were moist. Neck was supple and without jugular venous distension, thyromegaly, or carotid bruits. Carotids were easily palpable bilaterally. There was no adenopathy. Lungs are diminished in the patient's crackles in the lung bases bilaterally Cardiac exam revealed the PMI to be normally situated and sized. The rhythm was regular and no extrasystoles were noted during several minutes of auscultation. The first and second heart sounds were normal and physiologic splitting of the second heart sound was noted. There were no murmurs, rubs, clicks, or gallops. Abdominal exam revealed normal bowel sounds. The abdomen was soft, non-tender, and without masses, organomegaly, or appreciable enlargement of the abdominal aorta. Examination of the extremities revealed easily palpable radial, femoral and pedal pulses. There was no cyanosis, clubbing or edema. Results CBC & Chem 7: 03/17/21 21:22 03/17/21 21: Labs: Abnormal Lab Results - Last 24 Hours (Table) 03/17/21 03/17/21 Range/Units 21: 21:22 Plt Count 111 L (150-450) k/uL Lymphocytes # 0.7 L (1.0-4.8) k/uL Sodium 135 L (137-145) mmol/L Glucose 123 H (74-99) mg/dL AST 50 H (14-36) U/L Assessment and Plan Assessment: 1. Acute COVID-19 viral pneumonia - Patient has been treated with monoclonal antibodies; has been placed on Decadron 6 mg IV every 24 hours along with Lovenox 40 mg subcu daily; COVID-19 vitamin cocktail - We will trend and monitor inflammatory markers 2. Acute hypoxemic respiratory failure; patient is currently on 2 L O2 per nasal cannula saturating above 90%; we will titrate as able 3. Thrombocytopenia; related to COVID-19 infection; we will monitor CBC 4. Elevated inflammatory markers; LDH elevated at 1218 with CRP of 7.4; we will monitor inflammatory markers 5. Hypothyroidism; levothyroxin 88 MCG daily 6. Hyperlipidemia; Zocor 40 mg daily 7. Depression; Effexor 75 MCG daily DVT prophylax; SCDs/subcu Lovenox CODE STATUS; full code
--- NOTE | 2021-03-19 18:57 | P.PN ---
Subjective Progress Note Date: 03/19/21 50-year-old female patient is currently hospitalized for shortness of breath and fever related to covid 19 infection. The patient became symptomatic on 03/09/2021. At that time she was exposed to her daughter was also infected. Immediately she checked herself and she was positive. She contacted her primary care physician. No treatment was offered. Her condition got worse and she continued to have fevers and she is calm and in with fever and weakness and she was found to be hypoxic and currently is on 2 L of oxygen by nasal cannula. He did receive multiple antibodies yesterday. Subsequently, she was found to be hypoxic and her breathing got worse and for that reason she was admitted to the hospital. Her breathing is nonlabored at this point in time. She is on 2 L of oxygen by nasal cannula. Chest x-rays clearly showing bilateral pneumonia/infiltration. The patient's crackles bilaterally. White cell count is at 4.3, platelet count is 111, normal coagulation profile, d-dimer is low at 0.54, electrolytes are all normal, inflammatory markers are still pending for now. Renal function is normal. No signs of intravascular volume depletion or dehydration. She is otherwise healthy. She has history of hypothyroidism. 03/19/2021 Patient is seen and evaluated in room at bedside; denies any new complaints; patient remains on oxygen at 2 L per nasal cannula pulse ox of 90%. This is on 2 L of oxygen by nasal cannula. Vital signs are reviewed and remained stable Lab review shows LDH trending down from 1218 down to 424; CRP down from 7.4 yesterday to 4.0 this morning Continue treatment with Decadron, subcu Lovenox and Covid 19 vitamin cocktail Pulmonary recommending to continue current treatment for another 24-48 hours Objective - Vital Signs Vital signs: Vital Signs Temp 98.3 F 03/19/21 06:13 Pulse 74 03/19/21 06:13 Resp 17 03/19/21 07:40 BP 127/76 03/19/21 06:13 Pulse Ox 90 L 03/19/21 06:13 Intake & Output 03/18/21 03/19/21 03/19/21 18:59 06:59 18:59 Other: # Voids 2 - Exam - Constitutional General appearance: Present: average body habitus, cooperative, no acute distress - EENT Eyes: Present: anicteric sclerae, EOMI, PERRLA, normal appearance ENT: Present: hearing grossly normal, normal oropharynx Ears: bilateral: normal - Neck Neck: Present: normal ROM. Absent: lymphadenopathy, rigidity, thyromegaly Carotids: negative: bruit present Thyroid: bilateral: normal size, negative: enlarged, nodule - Respiratory Respiratory: bilateral: CTA, negative: rales, rhonchi, wheezing - Cardiovascular Rhythm: regular Heart sounds: normal: S1, S2 Abnormal Heart Sounds: Absent: systolic murmur, diastolic murmur - Gastrointestinal General gastrointestinal: Present: normal bowel sounds, soft. Absent: d istended, organomegaly, tenderness - Genitourinary Genitourinary Comment(s): deferred - Integumentary Integumentary: Present: normal turgor. Absent: jaundiced, rash, ulcer - Neurologic Neurologic: Present: CNII-XII intact. Absent: focal deficits - Musculoskeletal Musculoskeletal: Present: gait normal, strength equal bilaterally - Psychiatric Psychiatric: Present: A&O x's 3, appropriate affect, intact judgment & insight - Labs CBC & Chem 7: 03/17/21 21:22 03/17/21 21:22 Labs: Abnormal Lab Results - Last 24 Hours (Table) 03/19/21 03/19/21 Range/Units 06:41 06:41 Lactate Dehydrogenase 424 H (120-246) U/L C-Reactive Protein 4.20 H (0.00-0.80) mg/dL Procalcitonin 0.25 H (0.02-0.09) ng/mL Assessment and Plan Assessment: 1. Acute COVID-19 viral pneumonia - Patient has been treated with monoclonal antibodies; has been placed on Decadron 6 mg IV every 24 hours along with Lovenox 40 mg subcu daily; COVID-19 vitamin cocktail - We will trend and monitor inflammatory markers 2. Acute hypoxemic respiratory failure; patient is currently on 2 L O2 per nasal cannula saturating above 90%; we will titrate as able 3. Thrombocytopenia; related to COVID-19 infection; we will monitor CBC 4. Elevated inflammatory markers; LDH elevated at 1218 with CRP of 7.4; we will monitor inflammatory markers 5. Hypothyroidism; levothyroxin 88 MCG daily 6. Hyperlipidemia; Zocor 40 mg daily 7. Depression; Effexor 75 MCG daily DVT prophylax; SCDs/subcu Lovenox CODE STATUS; full code
[2021-03-20] MEDS: LEVOTHYROXINE 88 MCG TAB PO SCH (05:52)
[2021-03-20] MEDS: LORATADINE 10 MG TAB PO SCH (07:55)
[2021-03-20] MEDS: ASCORBIC ACID 500 MG TAB PO SCH ×2 (07:55→21:00)
[2021-03-20] MEDS: VENLAFAXINE HCL ER 75 MG CAP PO SCH (07:55)
[2021-03-20] MEDS: ZINC SULFATE 220 MG CAP PO SCH (07:55)
[2021-03-20] MEDS: ATORVASTATIN 20 MG TAB PO SCH (07:55)
[2021-03-20] MEDS: CHOLECALCIFEROL 25 MCG (1000 IU) TABLET PO SCH (07:55)
[2021-03-20] MEDS: ENOXAPARIN 40 MG/0.4 ML SYRINGE SQ SCH (07:56)
[2021-03-20] MEDS: SODIUM CHLORIDE 0.9% 1,000 ML IV SCH (07:56)
[2021-03-20] MEDS: DEXAMETHASONE SOD PHOSPHATE 10 MG/ML 1 ML VIAL IVP SCH (07:56)
[2021-03-20] MEDS: ALBUTEROL HFA INHALER INHALATION PRN ×2 (09:17→12:03)
[2021-03-20 10:12] LABS: C Reactive Protein 1.7 mg/dL (<1.0)
--- NOTE | 2021-03-20 11:26 | P.PN ---
Subjective Progress Note Date: 03/20/21 A pleasant 50-year-old female patient is currently hospitalized for shortness of breath and fever related to covid 19 infection. The patient became symptomatic on 03/09/2021. At that time she was exposed to her daughter was also infected. Immediately she checked herself and she was positive. She contacted her primary care physician. No treatment was offered. Her condition got worse and she continued to have fevers and she is calm and in with fever and weakness and she was found to be hypoxic and currently is on 2 L of oxygen by nasal cannula. He did receive multiple antibodies yesterday. Subsequently, she was found to be hypoxic and her breathing got worse and for that reason she was admitted to the hospital. Her breathing is nonlabored at this point in time. She is on 2 L of oxygen by nasal cannula. Chest x-rays clearly showing bilateral pneumonia/infiltration. The patient's crackles bilaterally. White cell count is at 4.3, platelet count is 111, normal coagulation profile, d-dimer is low at 0.54, electrolytes are all normal, inflammatory markers are still pending for now. Renal function is normal. No signs of intravascular volume depletion or dehydration. She is otherwise healthy. She has history of hypothyroidism. 03 19 2021, no new complaints and the patient remains on oxygen at 2 L, unable to wean her down further as the patient has a pulse ox of 90%. This is on 2 L of oxygen by nasal cannula. In terms of her treatment, she is on Decadron and she is on Lovenox. D-dimer is at 0.54. Rest of the inflammatory markers show an LDH level of 1218 and a CRP of 7.4. 03/20/2021, the patient remains on 2 L of oxygen by nasal cannula. She is doing well. She is doing great on her incentive spirometer and she was able to generate higher volumes compared to yesterday. She remains on Decadron. She remains on Lovenox. The inflammatory markers today showed a d-dimer of 0.55, and LDH level is down to 970, her CRP level is down to 1.7 and the rest of the labs are still pending. Nevertheless, the check inflammatory markers are all improving. Her latest chest x-ray was from yesterday and this was done on 03/19/2021 and showed bilateral perihilar pulmonary infiltrates consistent with COVID 19 related pneumonia. Note that this patient's condition has remained stable over this past few days. Objective - Vital Signs Vital signs: Vital Signs Temp 98.2 F 03/20/21 09:31 Pulse 73 03/20/21 09:31 Resp 17 03/20/21 09:31 BP 137/75 03/20/21 09:31 Pulse Ox 97 03/20/21 09:31 Intake & Output 03/19/21 03/20/21 03/20/21 18:59 06:59 18:59 Other: # Voids 5 3 - Exam Gen. appearance the patient is calm and her breathing is nonlabored currently on 2 L Head exam was generally normal. There was no scleral icterus or corneal arcus. Mucous membranes were moist. Neck was supple and without jugular venous distension, thyromegaly, or carotid bruits. Carotids were easily palpable bilaterally. There was no adenopathy. Lungs are diminished in the patient's crackles in the lung bases bilaterally Cardiac exam revealed the PMI to be normally situated and sized. The rhythm was regular and no extrasystoles were noted during several minutes of auscultation. The first and second heart sounds were normal and physiologic splitting of the second heart sound was noted. There were no murmurs, rubs, clicks, or gallops. Abdominal exam revealed normal bowel sounds. The abdomen was soft, non-tender, and without masses, organomegaly, or appreciable enlargement of the abdominal aorta. Examination of the extremities revealed easily palpable radial, femoral and pedal pulses. There was no cyanosis, clubbing or edema. - Labs CBC & Chem 7: 03/17/21 21:22 03/17/21 21:22 Labs: Abnormal Lab Results - Last 24 Hours (Table) 03/19/21 03/19/21 03/20/21 Range/Units 06:41 06:41 09:17 Lactate Dehydrogenase 424 H 970 H (120-246) U/L C-Reactive Protein 4.20 H 1.7 H (0.00-0.80) mg/dL Procalcitonin 0.25 H (0.02-0.09) ng/mL Assessment and Plan Plan: 1 Acute COVID 19 pneumonia, treated initially with monoclonal antibodies and subsequently the patient was found to be hypoxic with bilateral pulmonary infiltrates on the chest x-ray and the patient was hospitalized currently on 2 L about 2 by nasal cannula. D-dimer is low. The patient is clinically improving. Oxygenation is stable. Inflammatory markers are improving. 2 acute hypoxemic respiratory failure secondary to above 3 fever secondary to above 4 thrombocytopenia secondary to above 5 hypothyroidism Plan Monitor the oxygenation. Currently she is on 2 L. Recheck inflammatory markers including LDH and CRP showing improvement in implementing marker levels Decadron 6 g IV every 24 hours along with Lovenox 40 subcu daily Multivitamins per protocol Will monitor in the hospital for another 24-48 hours. Possible home tomorrow with oxygen if needed.
--- NOTE | 2021-03-20 18:40 | P.PN ---
Subjective Progress Note Date: 03/20/21 Principal diagnosis: Acute COVID 19 pneumonia Acute hypoxemic respiratory failure Thrombocytopenia 50-year-old female patient is currently hospitalized for shortness of breath and fever related to covid 19 infection. The patient became symptomatic on 03/09/2021. At that time she was exposed to her daughter was also infected. Immediately she checked herself and she was positive. She contacted her primary care physician. No treatment was offered. Her condition got worse and she continued to have fevers and she is calm and in with fever and weakness and she was found to be hypoxic and currently is on 2 L of oxygen by nasal cannula. He did receive multiple antibodies yesterday. Subsequently, she was found to be hypoxic and her breathing got worse and for that reason she was admitted to the hospital. Her breathing is nonlabored at this point in time. She is on 2 L of oxygen by nasal cannula. Chest x-rays clearly showing bilateral pn eumonia/infiltration. The patient's crackles bilaterally. White cell count is at 4.3, platelet count is 111, normal coagulation profile, d-dimer is low at 0.54, electrolytes are all normal, inflammatory markers are still pending for now. Renal function is normal. No signs of intravascular volume depletion or dehydration. She is otherwise healthy. She has history of hypothyroidism. 03/19/2021 Patient is seen and evaluated in room at bedside; denies any new complaints; patient remains on oxygen at 2 L per nasal cannula pulse ox of 90%. This is on 2 L of oxygen by nasal cannula. Vital signs are reviewed and remained stable Lab review shows LDH trending down from 1218 down to 424; CRP down from 7.4 yesterday to 4.0 this morning Continue treatment with Decadron, subcu Lovenox and Covid 19 vitamin cocktail Pulmonary recommending to continue current treatment for another 24-48 hours 03/20/2021 Patient is seen and evaluated in room at bedside; reports fair improvement; continues to use incentive spirometry aggressively Vital signs are reviewed and stable with temperature of 98.2, pulse 73, respiration 18 and blood pressure of 137/75, O2 saturation of 97% on 2 L She remains on Decadron. She remains on Lovenox. The inflammatory markers today showed a d-dimer of 0.55, and LDH level is down to 970, her CRP level is down to 1.7 Chest x-ray from 03/19/2021 reveals bilateral perihilar pulmonary infiltrates consistent with COVID-19 pneumonia We will continue to monitor inflammatory markers; pulmonary recommending to continue to monitor for another 24-48 hours Objective - Vital Signs Vital signs: Vital Signs Temp 98.2 F 03/20/21 09:31 Pulse 73 03/20/21 09:31 Resp 17 03/20/21 09:31 BP 137/75 03/20/21 09:31 Pulse Ox 97 03/20/21 09:31 Intake & Output 03/19/21 03/20/21 03/20/21 18:59 06:59 18:59 Other: # Voids 5 3 - Exam - Constitutional General appearance: Present: average body habitus, cooperative, no acute distress - EENT Eyes: Present: anicteric sclerae, EOMI, PERRLA, normal appearance ENT: Present: hearing grossly normal, normal oropharynx Ears: bilateral: normal - Neck Neck: Present: normal ROM. Absent: lymphadenopathy, rigidity, thyromegaly Carotids: negative: bruit present Thyroid: bilateral: normal size, negative: enlarged, nodule - Respiratory Respiratory: bilateral: CTA, negative: rales, rhonchi, wheezing - Cardiovascular Rhythm: regular Heart sounds: normal: S1, S2 Abnormal Heart Sounds: Absent: systolic murmur, diastolic murmur - Gastrointestinal General gastrointestinal: Present: normal bowel sounds, soft. Absent: distended, organomegaly, tenderness - Genitourinary Genitourinary Comment(s): deferred - Integumentary Integumentary: Present: normal turgor. Absent: jaundiced, rash, ulcer - Neurologic Neurologic: Present: CNII-XII intact. Absent: focal deficits - Musculoskeletal Musculoskeletal: Present: gait normal, strength equal bilaterally - Psychiatric Psychiatric: Present: A&O x's 3, appropriate affect, intact judgment & insight - Labs CBC & Chem 7: 03/17/21 21:22 03/17/21 21:22 Labs: Abnormal Lab Results - Last 24 Hours (Table) 03/19/21 03/19/21 03/20/21 Range/Units 06:41 06:41 09:17 Lactate Dehydrogenase 424 H 970 H (120-246) U/L C-Reactive Protein 4.20 H 1.7 H (0.00-0.80) mg/dL Procalcitonin 0.25 H (0.02-0.09) ng/mL Assessment and Plan Assessment: 1. Acute COVID-19 viral pneumonia - Patient has been treated with monoclonal antibodies; has been placed on Decadron 6 mg IV every 24 hours along with Lovenox 40 mg subcu daily; COVID-19 vitamin cocktail - We will trend and monitor inflammatory markers 2. Acute hypoxemic respiratory failure; patient is currently on 2 L O2 per nasal cannula saturating above 90%; we will titrate as able 3. Thrombocytopenia; related to COVID-19 infection; we will monitor CBC 4. Elevated inflammatory markers; LDH elevated at 1218 with CRP of 7.4; we will monitor inflammatory markers 5. Hypothyroidism; levothyroxin 88 MCG daily 6. Hyperlipidemia; Zocor 40 mg daily 7. Depression; Effexor 75 MCG daily DVT prophylax; SCDs/subcu Lovenox CODE STATUS; full code
[2021-03-21] MEDS: LEVOTHYROXINE 88 MCG TAB PO SCH (06:58)
[2021-03-21] MEDS: ENOXAPARIN 40 MG/0.4 ML SYRINGE SQ SCH (08:11)
[2021-03-21] MEDS: ASCORBIC ACID 500 MG TAB PO SCH (08:11)
[2021-03-21] MEDS: ATORVASTATIN 20 MG TAB PO SCH (08:11)
[2021-03-21] MEDS: ZINC SULFATE 220 MG CAP PO SCH (08:11)
[2021-03-21] MEDS: VENLAFAXINE HCL ER 75 MG CAP PO SCH (08:11)
[2021-03-21] MEDS: LORATADINE 10 MG TAB PO SCH (08:12)
[2021-03-21] MEDS: CHOLECALCIFEROL 25 MCG (1000 IU) TABLET PO SCH (08:12)
[2021-03-21] MEDS: DEXAMETHASONE SOD PHOSPHATE 10 MG/ML 1 ML VIAL IVP SCH (08:12)
[2021-03-21] MEDS: ALBUTEROL HFA INHALER INHALATION PRN (08:58)
[2021-03-21 10:03] VITALS: BP 121/79; PULSE 66; RESP 18; TEMP 98.2
[2021-03-21] MEDS: SODIUM CHLORIDE 0.9% 1,000 ML IV SCH (14:50)
--- NOTE | 2021-03-21 22:12 | DS ---
DISCHARGE SUMMARY FINAL DIAGNOSES: 1. Acute COVID-19 infection with bilateral interstitial pneumonia. 2. Acute hypoxic respiratory failure secondary to Covid 19 infection. 3. Thrombocytopenia, related to Covid .. 4. Elevated inflammatory markers of Covid 19. 5. Hypothyroidism. 6. Hyperlipidemia. 7. Depression. DISCHARGE DISPOSITION: The patient will be discharged in stable condition with guarded prognosis. HISTORY OF PRESENT ILLNESS: This 50-year-old woman with a past medical history of multiple medical problems including Covid 19 pneumonia and as well as hypoxic respiratory failure. Patient treated symptomatically. Improved significantly. Dr. Singh saw the patient. The D- dimer only 0.55 and procalcitonin 0.25. CRP was 1.7 showing diminishing trends. LDH was 970 showing diminishing trends again. On exam vitals signs are stable. Cardiovascular S1, S2. Abdomen soft. Nervous system: No focal deficits. The patient will be discharged in stable condition with guarded prognosis after clearance from Pulmonary. DISCHARGE ADVICE AND MEDICATIONS: 1. Diet is cardiac diet. 2. Activity limited until followup. 3. Follow up with Dr. Colon in 1-2 days. 4. Follow up with Dr. Singh p.r.n. or 2 weeks. 5. Effexor XR 75 mg p.o. daily. 6. Loratadine 10 mg p.o. daily. 7. Synthroid 88 mcg p.o. daily. 8. Vitamin D3 50 mcg p.o. daily. 9. Zocor 240 mg p.o. daily. 10.dexa 6 mg p.o. daily. 11.zinc_220 mg daily for 10 days. 12.Ventolin HFA 2 puffs q2h. q.i.d. p.r.n. 13.Vitamin C 500 mg p.o. daily. Once again, the patient discharged in stable condition with guarded prognosis. Home O2 will be arranged also. MMODL / IJN: [id number] / MTDD
== END 2021-03-21 16:31 | disposition home or self-care (01) | DRG 177 ==
LOC: EC 14:06 → 4SSUR 20:18
PROVIDERS: ADMIT Hospitalist; ATTEND Hospitalist
PROC: XW033G6 Introduction of REGN-COV2 Monoclonal Antibody into Peripheral Vein, Percutaneous Approach, New Technology Group 6 (ICD-10-PCS; principal; 2021-03-17)
DX: U07.1 COVID-19 (principal); J12.82 Pneumonia due to coronavirus disease 2019; J96.01 Acute respiratory failure with hypoxia; D69.59 Other secondary thrombocytopenia; E03.9 Hypothyroidism, unspecified; E78.5 Hyperlipidemia, unspecified; F32.9 Major depressive disorder, single episode, unspecified; Z79.890 Hormone replacement therapy; Z79.899 Other long term (current) drug therapy
CPT/HCPCS: 71045; 80053; 83605; 83615; 83735; 84145; 84484; 85025; 85379; 85610; 85730; 86140; 93005; 94640; 94760; 99285

== ENCOUNTER 2022-01-18 09:06 | Day surgery (SDC) | payer OTHER ==
[2022-01-17 11:41] VITALS: BMI 37.4
--- NOTE | 2022-01-18 07:55 | P.GSHP ---
History of Present Illness H&P Date: 01/18/22 CHIEF COMPLAINT: Colon screen HISTORY OF PRESENT ILLNESS: The patient is a 51-year-old female who presents for colon screen. Lower endoscopy was offered for further evaluation and management. PAST MEDICAL HISTORY: Please see list. PAST SURGICAL HISTORY: Please see list. MEDICATIONS: Please see list. ALLERGIES: Please see list. SOCIAL HISTORY: No illicit drug use FAMILY HISTORY: No reports of Crohn disease or ulcerative colitis. REVIEW OF ORGAN SYSTEMS: CONSTITUTIONAL: No reports of fevers or chills. PHYSICAL EXAM: VITAL SIGNS: Stable GENERAL: Well-developed pleasant in no acute distress. HEENT: No scleral icterus. Extraocular movements grossly intact. Moist buccal mucosa. NECK: Supple without lymphadenopathy. CHEST: Unlabored respirations. Equal bilateral excursions. CARDIOVASCULAR: Regular rate and rhythm. Distal 2+ pulses. ABDOMEN: Soft, nontender, nondistended. MUSCULOSKELETAL: No clubbing, cyanosis, or edema. ASSESSMENT: 1. Colon screen. PLAN: 1. Recommend proceeding with a lower endoscopy Past Medical History Past Medical History: Hyperlipidemia, Osteoarthritis (OA), Thyroid Disorder Additional Past Medical History / Comment(s): migraines, hx gout, History of Any Multi-Drug Resistant Organisms: None Reported Past Surgical History: No Surgical Hx Reported Past Anesthesia/Blood Transfusion Reactions: No Reported Reaction Smoking Status: Former smoker - Past Family History Mother Family Medical History: Cancer, Deep Vein Thrombosis (DVT), Pulmonary Embolus Medications and Allergies Home Medications Medication Instructions Recorded Confirmed Type Levothyroxine Sodium [Synthroid] 88 mcg PO DAILY 03/17/21 01/17/22 History Loratadine 10 mg PO DAILY 03/17/21 01/17/22 History Simvastatin [Zocor] 40 mg PO HS 03/17/21 01/17/22 History Venlafaxine HCl [Effexor XR] 75 mg PO HS 03/17/21 01/17/22 History Ergocalciferol [Vitamin D2 (1250 1,250 mcg PO MO 01/17/22 01/17/22 History Mcg = 73337 Iu)] Meloxicam [Mobic] 7.5 mg PO BID 01/17/22 01/17/22 History Allergies Allergy/AdvReac Type Severity Reaction Status Date / Time No Known Allergies Allergy Verified 01/17/22 11:34
[~2022-01-18 09:06] MED LIST: LIDOCAINE 1% (10MG/ML) FOR IV START INTRADERMA PRN
[2022-01-18 10:10] VITALS: RESP 16; TEMP 98
[2022-01-18] MEDS: LACTATED RINGERS 1,000 ML IV SCH ×2 (10:10→10:32)
[2022-01-18] MEDS ORDERED: PROPOFOL 10 MG/ML 20 ML VIAL IV ONE (10:32)
--- NOTE | 2022-01-18 11:03 | P.PCN ---
Date of Procedure: 01/18/22 Description of Procedure: PREOPERATIVE DIAGNOSIS: Positive Cologaurd test POSTOPERATIVE DIAGNOSIS: Tubular adenoma cecum Sigmoid diverticulosis with stricture Internal hemorrhoids, grade 2 OPERATION: Colonoscopy to the ileocecal valve and appendiceal orifice, cecum Colonoscopy with hot snare polypectomy SURGEON: Aurelia Brown MD. ANESTHESIA: MAC. INDICATIONS: The patient is an 51-year-old female who presents after positive abnormal stool study, Cologaurd. Benefits and risks were described and informed consent was obtained. DESCRIPTION OF PROCEDURE: The patient had undergone Sutab prep. The patient had been brought into the operating room and laid in the left lateral decubitus position. After adequate intravenous sedation, the rectum was examined with 2% lidocaine jelly. No external hemorrhoids were encountered. The rectal tone was within normal limits. No lesions were palpated in the rectal vault. An Olympus colonoscope was advanced until the cecum, ileocecal valve and appendiceal orifice were clearly viewed. The prep was fair. Sigmoid diverticulosis was encountered with s tricture. Colonic polyps were found and removed. No evidence of focal colitis was found. Retroflexion of the scope demonstrated grade 2 internal hemorrhoids without active bleeding or inflammation. The colon was desufflated. The patient had tolerated the procedure well. Withdrawal time was over 6 minutes. FINDINGS: Aronchick preparation quality scale 2 (1-5) Internal hemorrhoids, grade 2 No external hemorrhoids No arteriovenous malformations. Sigmoid diverticulosis with stricture Removal of 1 polyp: - Snare polypectomy and cecum, 6 mm flat villous adenoma No focal colitis. RECOMMENDATIONS: Repeat colonoscopy in 3 years, 2024 Plan - Discharge Summary New Discharge Prescriptions: Continue Levothyroxine Sodium [Synthroid] 88 mcg PO DAILY Ergocalciferol [Vitamin D2 (1250 Mcg = 33424 Iu)] 1,250 mcg PO MO Venlafaxine HCl [Effexor XR] 75 mg PO HS Simvastatin [Zocor] 40 mg PO HS Loratadine 10 mg PO DAILY Meloxicam [Mobic] 7.5 mg PO BID Discharge Medication List Levothyroxine Sodium [Synthroid] 88 mcg PO DAILY 03/17/21 [History] Loratadine 10 mg PO DAILY 03/17/21 [History] Simvastatin [Zocor] 40 mg PO HS 03/17/21 [History] Venlafaxine HCl [Effexor XR] 75 mg PO HS 03/17/21 [History] Ergocalciferol [Vitamin D2 (1250 Mcg = 79940 Iu)] 1,250 mcg PO MO 01/17/22 [History] Meloxicam [Mobic] 7.5 mg PO BID 01/17/22 [History] Follow up Appointment(s)/Referral(s): Aurelia Brown MD [STAFF PHYSICIAN] - 01/31/22 Patient Instructions/Handouts: Colorectal Polyps (GEN), Diverticulosis Diet (GEN), Diverticulosis (DC) Activity/Diet/Wound Care/Special Instructions: Repeat colonoscopy 3 years, 2024 Discharge Disposition: HOME SELF-CARE
[2022-01-18 11:17] VITALS: BP 131/75; PULSE 88
== END 2022-01-18 11:31 | disposition home or self-care (01) ==
LOC: ORWHC2ENDO 09:06
PROVIDERS: ATTEND Surgery Plastic and Reconstructive Surgery
DX: D12.0 Benign neoplasm of cecum (principal); K57.30 Diverticulosis of large intestine without perforation or abscess without bleeding; K56.699 Other intestinal obstruction unspecified as to partial versus complete obstruction; K64.8 Other hemorrhoids; E78.5 Hyperlipidemia, unspecified; M19.90 Unspecified osteoarthritis, unspecified site; E07.9 Disorder of thyroid, unspecified; I25.10 Atherosclerotic heart disease of native coronary artery without angina pectoris; G43.909 Migraine, unspecified, not intractable, without status migrainosus; Z87.39 Personal history of other diseases of the musculoskeletal system and connective tissue; Z87.891 Personal history of nicotine dependence; Z84.89 Family history of other specified conditions; Z80.9 Family history of malignant neoplasm, unspecified; Z83.2 Family history of diseases of the blood and blood-forming organs and certain disorders involving the immune mechanism; Z79.899 Other long term (current) drug therapy; Z79.890 Hormone replacement therapy
CPT/HCPCS: 88305; 45385; J2704

== ENCOUNTER → 2023-01-03 | Outpatient (CLI) | payer OTHER ==
--- NOTE | 2023-01-04 08:50 | MM ---
Reason for Exam: Screening (asymptomatic). Last mammogram was performed 3 year(s) and 11 month(s) ago. Patient History: Menarche at age 12. First Full-Term at age 17. Postmenopausal. Risk Values: Jesusita 5 year model risk: 0.7%. NCI Lifetime model risk: 5.6%. Prior Study Comparison: 06/26/2017 Left Diagnostic Mammogram, [facility]. 11/05/2017 Bilateral Diagnostic Mammogram, [facility]. 01/17/2019 Bilateral Screening Mammogram, [facility]. Tissue Density: There are scattered fibroglandular densities. Findings: Analyzed By CAD. There is no suspicious group of microcalcifications or new suspicious mass in either breast. Overall Assessment: Negative, BI-RAD 1 Management: Screening Mammogram of both breasts in [address] [facility] will attempt to contact patient to return for supplemental views and ultrasound if indicated. Patient should continue monthly self-breast exams. A clinical breast exam by your physician is recommended on an annual basis. This exam should not preclude additional follow-up of suspicious palpable abnormalities. Note on Jesusita scores and lifetime risk: 1. A Jesusita score greater than 3% is considered moderate risk. If this is the case, consider specialist referral to assess eligibility for a risk reducing agent. 2. If overall lifetime risk for the development of breast cancer is 20% or higher, the patient may qualify for future screening with alternating mammogram and breast MRI. Electronically signed and approved by: Sanju Niño DO
== END | disposition home or self-care (01) ==
LOC: RADMAMWWP 15:33
PROVIDERS: ATTEND Family Medicine
DX: Z12.31 Encounter for screening mammogram for malignant neoplasm of breast (principal); Z78.0 Asymptomatic menopausal state
CPT/HCPCS: 77067

== ENCOUNTER → 2023-06-27 | Outpatient (CLI) | payer OTHER ==
--- NOTE | 2023-06-27 11:39 | P.SLEEP ---
History of Present Illness DATE: 06/27/2023 CONSULTATION/NEW PATIENT EVALUATION HISTORY OF PRESENT ILLNESS/SLEEP-WAKE EVALUATION: 52-year-old lady had been evaluated in the sleep center for possible obstructive sleep apnea hypopnea syndrome. SLEEP SCHEDULE: Usually sleep schedule from 9 PM to 5:30 AM on weekdays and to 7 AM on weekend. FALLING ASLEEP: No problems with falling asleep. DURING SLEEP: Patient has loud snoring, wakes up from sleep with dry mouth, panic attacks, palpitation, gasping for air, sweating 3 times per night with 3 episodes of nocturia No history of hypnogogical hallucinations, sleep paralysis, or cataplexy. Positive history of restless leg symptoms. DURING THE DAY/WAKE STATE: In the morning patient wake up tired, has difficulties to pay attention, falling asleep during the day, has problems with memory, concentration, irritability. Berwick sleepiness scale is is and extremely high range of 19. Patient takes 1 nap at 2 PM. PAST MEDICAL HISTORY: Hypothyroidism, anxiety, hyperlipidemia. PAST SURGICAL HISTORY: None. MEDICATIONS: Levothyroxine 88 g once a day, simvastatin 40 mg once a day, venlafaxine 75 mg once a day. SOCIAL HISTORY: Positive for smoking for about 20 pack years, quit in 2009, alcohol consumption none. FAMILY HISTORY: Hypertension, heart problems, cancer, emphysema. REVIEW OF SYSTEMS: Snoring, multiple awakenings from sleep, significant sleepiness during the day. No fevers. No double vision. No recent chest pain. No shortness of breath. No abdominal pain. No bleeding episodes. No blood in urine. No seizure episodes. PHYSICAL EXAMINATION: GENERAL: A pleasant patient without any distress. VITAL SIGNS: BP 153/82 , HR 82 , RR 12 , weight 210.6 pounds, height 5 rachana t 5.5 inches, body mass index 34.4 . HEENT: PERRLA, EOMI. Evaluation of oropharynx showed tongue protrudes midline, low position of soft palate Mallampati 23. NECK: Supple. No JVD. Thyroid is not palpable. 15 inches in circumference. LUNGS: Clear to percussion and to auscultation. Good air exchange. No wheezing or rhonchi. HEART: S1, S2 regular. No murmurs, gallops or rubs. ABDOMEN: Soft and nontender. Bowel sounds are present. No organomegaly appreciated. EXTREMITIES: No clubbing or cyanosis. DRIVER HELPER: Awake, alert, and oriented x3. Cranial nerves 2 to 7 intact. There is no fasciculation or atrophy noted. No focal deficits observed. ASSESSMENT: 1. Snoring, multiple awakenings from sleep with dry mouth and episodes of gasping for air, sleepiness. Obstructive sleep apnea hypopnea syndrome. 2. Significant excessive daytime sleepiness with Berwick Sleepiness Scale 19 dictated necessity to include narcolepsy type II and differential diagnosis. 3. Obesity, BMI 34.4. 4. Hypothyroidism. 5 hyperlipidemia. 6 . Anxiety. 7. Increased blood pressure in the office today. 8. History of restless leg symptoms. PLAN: 1. Polysomnography for evaluation of patient's breathing during sleep. 2. Following plan after reading sleep test. 3. Preferable position during sleep on the side. 4. No driving if patient feels any sleepiness. Patient is aware of civil and criminal liability for unsafe driving. 5. Sleep hygiene with regular sleep time for at least 7.5-8 hours. 6. Watching and losing weight. Thank you very much for referring this patient for consultation. Sincerely, Lokesh Carias MD, PhD, FAASM. Diplomat of [place] [employer], Sleep Medicine Board by [place] [employer] [place] [employer] [facility] Past Medical History Past Medical History: Hyperlipidemia, Osteoarthritis (OA), Thyroid Disorder Additional Past Medical History / Comment(s): migraines, hx gout, History of Any Multi-Drug Resistant Organisms: None Reported Past Surgical History: No Surgical Hx Reported Past Anesthesia/Blood Transfusion Reactions: No Reported Reaction Smoking Status: Former smoker - Past Family History Mother Family Medical History: Cancer, Deep Vein Thrombosis (DVT), Pulmonary Embolus Medications and Allergies Home Medications Medication Instructions Recorded Confirmed Type Levothyroxine Sodium [Synthroid] 88 mcg PO DAILY 03/17/21 01/18/22 History Loratadine 10 mg PO DAILY 03/17/21 01/18/22 History Simvastatin [Zocor] 40 mg PO HS 03/17/21 01/18/22 History Venlafaxine HCl [Effexor XR] 75 mg PO HS 03/17/21 01/18/22 History Ergocalciferol [Vitamin D2 (1250 1,250 mcg PO MO 01/17/22 01/18/22 History Mcg = 86048 Iu)] Meloxicam [Mobic] 7.5 mg PO BID 01/17/22 01/18/22 History Allergies Allergy/AdvReac Type Severity Reaction Status Date / Time No Known Allergies Allergy Verified 01/18/22 09:54 Sleep Note - Sleep Note Sleep Note: Temperature: Pulse Rate: Respiratory Rate: Blood Pressure: SpO2: Height: Weight: BMI: Neck Circumference:
== END | disposition home or self-care (01) ==
LOC: 3 N SLEEP 10:58
PROVIDERS: ATTEND Internal Medicine
DX: G47.33 Obstructive sleep apnea (adult) (pediatric) (principal); E66.9 Obesity, unspecified; E03.9 Hypothyroidism, unspecified; E78.5 Hyperlipidemia, unspecified; F41.9 Anxiety disorder, unspecified; I10 Essential (primary) hypertension; G25.81 Restless legs syndrome; R06.83 Snoring; Z68.34 Body mass index [BMI] 34.0-34.9, adult; Z79.890 Hormone replacement therapy
CPT/HCPCS: 99211

== ENCOUNTER 2023-07-03 19:34 | Outpatient (CLI) | payer OTHER ==
--- NOTE | 2023-07-04 14:55 | P.PCN ---
Description of Procedure: POLYSOMNOGRAPHY REPORT PROCEDURE(S)/DATE(S): Polysomnography 07/03/2023 CLINICAL: Patient has been seen in the sleep center for evaluation of obstructive sleep apnea-hypopnea syndrome. Please see my consultation. Sleep study has been done for evaluation of patient breathing during the sleep. PROCEDURE: The standard montage for clinical polysomnography included the electroencephalogram, the electrooculogram, the mentalis surface electromyography and Lead II cardiography. The respiratory battery consisted of measurements of nasal/buccal air flow, pressure transducer measurements from nose, thoracic and/or abdominal effort and intercostal surface electromyography. Video monitoring has been done to check for any parasomnia events. Nocturnal oxyhemoglobin saturations were obtained by finger oximetry. Step-segovia titration with positive airway pressure was utilized to control the respiratory events, if necessary. RESULTS: During the diagnostic sleep study sleep efficiency was decreased to 74.5 %. Latency to sleep onset was normal 17.5 min. Sleep architecture showed stage NI was increased to 13.0 %, Delta sleep was normal 17.6 %, REM sleep was practically absent 0.3 %. Respiratory channel showed 0 obstructive apneas, 0 mixed apneas, 0 central apneas, 34 hypopneas with lowest oxygen level 86%. Total apnea hypopnea index was 6.5. Heart rate was in the range between 73 and 83, average 78. EMG showed 72.7 periodic limb movements per hour with 1.0 micro-arousals per hour. IMPRESSIONS: 1. Obstructive sleep apnea hypopnea syndrome in mild range. Patient presents with symptoms of significant excessive daytime sleepiness. 2. Severe periodic limb movements have been documented with few micro-arousals. Please see other impressions from consultation PLAN: 1. The patient will be started on AutoPAP treatment and should use equipment every night for the whole night. 2. Losing weight program. 3. Sleep hygiene with regular time in bed for at least 7-1/2 hours. 4. No driving if feeling sleepiness. 5. Please check iron profile including ferritin level. Low level of iron may increase the risk for periodic limb movements. 6. I will see patient for follow-up visit to evaluate clinical response on treatment, compliance with treatment and make in this adjustments related to mask fitting pressure and humidification. If patient will continue to feel significant sleepiness while using CPAP well, we may consider multiple sleep latency test for differential diagnosis with narcolepsy and hypersomnia. Thank you very much for allowing me to participate in the management of your patient. Sincerely, Lokesh Carias MD, PhD, FAASM. Diplomat of [place] [employer], Sleep Medicine Board by [place] [employer] Residential Fee Appraiser [facility] [place]
== END 2023-07-04 05:40 | disposition home or self-care (01) ==
LOC: 3 N SLEEP 19:34
PROVIDERS: ATTEND Internal Medicine
DX: G47.33 Obstructive sleep apnea (adult) (pediatric) (principal); G47.61 Periodic limb movement disorder
CPT/HCPCS: 95810

== ENCOUNTER 2023-09-18 14:52 | Emergency (ER) | payer OTHER ==
--- NOTE | 2023-09-18 15:00 | ED ---
Extremity Problem HPI - General Source: patient, RN notes reviewed Mode of arrival: ambulatory Limitations: no limitations - History of Present Illness MD Complaint: extremity pain <Gretchen Palumbo - Last Filed: 09/18/23 14:55> <Adebayo Schwab - Last Filed: 09/18/23 15:59> - General Chief complaint: Extremity Problem,Nontraumatic Stated complaint: ED evaluation, R lower leg Time Seen by Provider: 09/18/23 14:55 - History of Present Illness Initial comments: Quick Note: This is a 53 year old female who presents to the emergency department for right leg pain. This started suddenly about 2 days ago and made it difficult to walk. Pain has however started to improve. She saw her PCP today and was advised to come to the emergency department for an US to rule out a DVT. Denies any hx of blood clots. Not taking any blood thinners. (Gretchen Palumbo) This is a 53-year-old female who presents to the emergency department complaining of right calf pain since Sunday. Patient states she does remember injury or having a Spasm. Patient states the pain continued until today while she was at work. Patient is all of a sudden she was walking the hallway and the pain completely was gone and that made her nervous and she worried that maybe she had a clot that is no longer in her calf. Patient denies any chest pain difficulty breathing shortness of breath. Patient has no symptoms currently (Adebayo Schwab) - Related Data Home Medications Medication Instructions Recorded Confirmed Levothyroxine Sodium [Synthroid] 88 mcg PO DAILY 03/17/21 01/18/22 Loratadine 10 mg PO DAILY 03/17/21 01/18/22 Simvastatin [Zocor] 40 mg PO HS 03/17/21 01/18/22 Venlafaxine HCl [Effexor XR] 75 mg PO HS 03/17/21 01/18/22 Ergocalciferol [Vitamin D2 (1250 1,250 mcg PO MO 01/17/22 01/18/22 Mcg = 28553 Iu)] Meloxicam [Mobic] 7.5 mg PO BID 01/17/22 01/18/22 Allergies Allergy/AdvReac Type Severity Reaction Status Date / Time No Known Allergies Allergy Verified 01/18/22 09:54 Review of Systems ROS Other: All systems not noted in ROS Statement are negative. <Gretchen Palumbo - Last Filed: 09/18/23 14:55> ROS Other: All systems not noted in ROS Statement are negative. <Adebayo Schwab - Last Filed: 09/18/23 15:59> ROS Statement: Those systems with pertinent positive or pertinent negative responses have been documented in the HPI. Past Medical History Past Medical History: Hyperlipidemia, Osteoarthritis (OA), Thyroid Disorder Additional Past Medical History / Comment(s): migraines, hx gout, History of Any Multi-Drug Resistant Organisms: None Reported Past Surgical History: No Surgical Hx Reported Past Anesthesia/Blood Transfusion Reactions: No Reported Reaction Smoking Status: Former smoker - Past Family History Mother Family Medical History: Cancer, Deep Vein Thrombosis (DVT), Pulmonary Embolus <Gretchen Palumbo - Last Filed: 09/18/23 14:55> General Exam <Gretchen Palumbo - Last Filed: 09/18/23 14:55> <Adebayo Schwab - Last Filed: 09/18/23 15:59> - General Exam Comments Initial Comments: Visual Physical Exam Vital signs reviewed General: Well-appearing, nontoxic, no acute distress. Head: Normocephalic, atraumatic Eyes: PERRLA, EOMI ENT: Airway patent Chest: Nonlabored breathing Skin: No visual rash, normal skin tone Neuro: Alert and oriented 3 Musculoskeletal: No gross abnormalities (Gretchen Palumbo) GENERAL Patient is well-developed and well-nourished. Patient is in mild distress. EYES Patient's pupils are equal and round. Extraocular motion is intact SKIN Unremarkable NEURO The patient is alert and oriented x 3 PYSCH Patient has normal interpersonal interactions. MUSCULOSKELETAL Patient has no calf tenderness has full range of motion of the foot and knee. (Adebayo Schwab) Course Vital Signs 09/18/23 15:07 Temperature 98.5 F Pulse Rate 82 Respiratory 16 Rate Blood Pressure 152/83 O2 Sat by Pulse 95 Oximetry Medical Decision Making <Gretchen Palumbo - Last Filed: 09/18/23 14:55> <Adebayo Schwab - Last Filed: 09/18/23 15:59> - Medical Decision Making I performed the QuickNote portion of this chart. Signed Gretchen Palumbo PA-C. (Gretchen Palumbo) Was pt. sent in by a medical professional or institution (, FRANCY, CLOTH BLEACHING RANGE BACK TENDER, urgent care, hospital, or longterm...) When possible be specific @ -No Did you speak to anyone other than the patient for history (EMS, parent, family, police, friend...)? What history was obtained from this source @ -No Did you review nursing and triage notes (agree or disagree)? Why? @ -I reviewed and agree with nursing and triage notes Were old charts reviewed (outside hosp., previous admission, EMS record, old EKG, old radiological studies, urgent care reports/EKG's, longterm records)? Report findings @ -No old charts were reviewed Differential Diagnosis (chest pain, altered mental status, abdominal pain women, abdominal pain men, vaginal bleeding, weakness, fever, dyspnea, syncope, headache, dizziness, GI bleed, back pain, seizure, CVA, palpatations, mental health, musculoskeletal)? @ -Differential Musculoskeletal Muscular strain, contusion, ligament sprain, fracture, arthritis, septic arthritis, bursitis, cellulitis, muscle spasm, nerve compression, DVT, arterial occlusion, herpes zoster, electrolyte abnormality, tumor.... This is not meant to be in all inclusive list EKG interpreted by me (3pts min.). @ -As above X-rays interpreted by me (1pt min.). @ -None done CT interpreted by me (1pt min.). @ -None done U/S interpreted by me (1pt. min.). @ -Ultrasound showed no DVT What testing was considered but not performed or refused? (CT, X-rays, U/S, labs)? Why? @ -None What meds were considered but not given or refused? Why? @ -None Did you discuss the management of the patient with other professionals (professionals i.e. FRANCY Jaeger, CLOTH BLEACHING RANGE BACK TENDER, lab, RT, psych nurse, social work supervisor, senior art director, teacher, probation and parole officer, human services case manager)? Give summary @ -No Was smoking cessation discussed for >3mins.? @ -No Was critical care preformed (if so, how long)? @ -No Were there social determinants of health that impacted care today? How? (Homelessness, low income, unemployed, alcoholism, drug addiction, decker sportation, low edu. Level, literacy, decrease access to med. care, custodial, rehab)? @ -No Was there de-escalation of care discussed even if they declined (Discuss DNR or withdrawal of care, Hospice)? DNR status @ -No What co-morbidities impacted this encounter? (DM, HTN, Smoking, COPD, CAD, Cancer, CVA, ARF, Chemo, Hep., AIDS, mental health diagnosis, sleep apnea, morbid obesity)? @ -None Was patient admitted / discharged? Hospital course, mention meds given and route, prescriptions, significant lab abnormalities, going to OR and other pertinent info. @ -Patient remained asymptomatic throughout her ED stay Undiagnosed new problem with uncertain prognosis? @ -No Drug Therapy requiring intensive monitoring for toxicity (Heparin, Nitro, Insulin, Cardizem)? @ -No Were any procedures done? @ -No Diagnosis/symptom? @ -Calf strain Acute, or Chronic, or Acute on Chronic? @ -Default Uncomplicated (without systemic symptoms) or Complicated (systemic symptoms)? @ -Acute uncomplicated Side effects of treatment? @ -No Exacerbation, Progression, or Severe Exacerbation? @ -No Poses a threat to life or bodily function? How? (Chest pain, USA, VT, pneumonia, PE, COPD, DKA, ARF, appy, cholecystitis, CVA, Diverticulitis, Homicidal, Suicidal, threat to staff... and all critical care pts) @ -No (Adebayo Schwab) Disposition <Gretchen Palumbo - Last Filed: 09/18/23 14:55> Is patient prescribed a controlled substance at d/c from ED?: No Time of Disposition: 15:58 <Adebayo Schwab - Last Filed: 09/18/23 15:59> Clinical Impression: Strain of calf muscle Disposition: HOME SELF-CARE Condition: Good Instructions (If sedation given, give patient instructions): Muscle Strain (ED) Referrals: Duke Garcia MD [Primary Care Provider] - 1-2 days
--- NOTE | 2023-09-18 15:57 | US ---
EXAMINATION TYPE: US venous doppler duplex LE RT DATE OF EXAM: 09/18/2023 3:47 PM COMPARISON: NONE CLINICAL INDICATION: Female, 53 years old with history of Leg pain; pain SIDE PERFORMED: Right TECHNIQUE: The lower extremity deep venous system is examined utilizing real time linear array sonog jose with graded compression, doppler sonography and color-flow sonography. VESSELS IMAGED: Common Femoral Vein Deep Femoral Vein Greater Saphenous Vein * Femoral Vein Popliteal Vein Small Saphenous Vein * Proximal Calf Veins (* superficial vessels) Right Leg: Negative for DVT IMPRESSION: Grayscale, color doppler, spectral doppler imaging performed of the deep veins of the lo wer extremities. There is normal flow, compressibility, vascular waveforms.
[2023-09-18 16:39] VITALS: BP 153/73; PULSE 78; RESP 18; TEMP 97.8
== END 2023-09-18 16:05 | disposition home or self-care (01) ==
LOC: EC 14:52
DX: S86.911A Strain of unspecified muscle(s) and tendon(s) at lower leg level, right leg, initial encounter (principal); Z87.891 Personal history of nicotine dependence; X58.XXXA Exposure to other specified factors, initial encounter; Y93.01 Activity, walking, marching and hiking
CPT/HCPCS: 99283

== ENCOUNTER → 2024-01-08 | Outpatient (CLI) | payer OTHER ==
--- NOTE | 2024-01-13 11:33 | MM ---
Reason for Exam: Screening (asymptomatic). Last mammogram was performed 1 year(s) and 1 month(s) ago. Patient History: Menarche at age 12. First Full-Term at age 17. Postmenopausal. Risk Values: Jesusita 5 year model risk: 0.8%. NCI Lifetime model risk: 5.5%. Prior Study Comparison: 11/05/2017 Bilateral Diagnostic Mammogram, [facility]. 01/17/2019 Bilateral Screening Mammogram, [facility]. 01/03/2023 Bilateral MG screening mammo w CAD, [facility]. Tissue Density: There are scattered areas of fibroglandular density. Findings: Analyzed By CAD. Right breast: There is no suspicious group of microcalcifications or new suspicious mass. Left breast: There is no suspicious group of microcalcifications or new suspicious mass. Overall Assessment: Negative, BI-RAD 1 Management: Screening Mammogram of both breasts in [address] [facility] will attempt to contact patient to return for supplemental views and ultrasound if indicated. Patient should continue monthly self-breast exams. A clinical breast exam by your physician is recommended on an annual basis. This exam should not preclude additional follow-up of suspicious palpable abnormalities. Note on Jesusita scores and lifetime risk: 1. A Jesusita score greater than 3% is considered moderate risk. If this is the case, consider specialist referral to assess eligibility for a risk reducing agent. 2. If overall lifetime risk for the development of breast cancer is 20% or higher, the patient may qualify for future screening with alternating mammogram and breast MRI. Electronically signed and approved by: Sanju Niño DO
== END | disposition home or self-care (01) ==
LOC: RADMAMWWP 12:35
PROVIDERS: ATTEND Family Medicine
DX: Z12.31 Encounter for screening mammogram for malignant neoplasm of breast
CPT/HCPCS: 77067